=== PATIENT | male | born 1975 | race Hispanic/Latino ===

== ENCOUNTER → 2024-11-06 | Outpatient (CLI) | payer OTHER ==
[~2024-11-06] MED LIST: IOHEXOL 350 MG/ML 100ML INFUS..BTL IV ONE; metoPROLOL tartRATE 1 MG/ML 5ML VIAL IV ONE
--- NOTE | 2024-11-06 12:25 | HMCIMG ---
CT CARDIAC ANGIO W/CONT. CCTA HISTORY: Chest pain COMPARISON: None TECHNIQUE: Multiple sequential axial images of the chest were obtained along with the CT angiogram of the chest study. Patient was given 100 cc of Omnipaque through intravenous route. FINDINGS: There is no evidence of pulmonary nodule or parenchymal disease. No pleural effusion or pericardial effusion is seen. There is no evidence of pneumothorax. There are normal size mediastinal and hilar lymph nodes. The heart is not enlarged. Degenerative changes of the thoracolumbar spine are present. IMPRESSION: 1. No evidence of pulmonary nodule or effusion is seen. Please see CT angiogram report of coronary arteries.
== END | disposition home or self-care (01) ==
LOC: EEVIPCON 10:39 → RAH 10:39
PROVIDERS: ATTEND Student in an Organized Health Care Education/Training Program
DX: R07.9 Chest pain, unspecified (principal); R94.31 Abnormal electrocardiogram [ECG] [EKG]; M47.815 Spondylosis without myelopathy or radiculopathy, thoracolumbar region
CPT/HCPCS: 75574; J3490 ×2; Q9967

== ENCOUNTER → 2024-11-27 | Outpatient (CLI) | payer OTHER ==
--- NOTE | 2024-11-28 14:21 | HMCSR ---
APPROVED REPORT EXAM: Two-dimensional and M-mode echocardiogram with Doppler and color Doppler. INDICATION ICD: R07.9 Chest pain Abnormal ECG 2D Dimensions RVDd4.0 cmLVEF(%)60.8 (>50%)LVED Vol(simp.)120.0 mL IVSd0.8 (0.7-1.1cm)FS(%)33 %LVES Vol(simp.)59.0 mL LVDd5.3 (3.8-5.6cm)Ao Root(2D)3.2 (2.0-3.7cm)LVEF(%, simp.)51 % PWd1.0 (0.7-1.1cm)LVOT diam2.1 (1.8-2.4cm)LA ESV INDEX (BP)23.31 mL/m2 LVDs3.5 (2.5-4.0cm)IVC diam1.4 cm Aortic Valve AoV Vmax1.6 m/Momo Peak GR10.7 mmHgLVOT Vmax1.0 m/s AoV VTI0.3 mAo Mean GR5.5 mmHgLVOT VTI0.21 m ANKUR (VMAX)2.2 cm2AVA (VTI) 2.2 cm2 Mitral Valve MV E Vmax78.1 cm/sDECEL [id number] ms MV A Vmax63.7 cm/sP 1/2 T57 ms E/A ratio1.2MVA (PHT)3.9 cm2 TDI E/E' Twdudy63.7E/E' Lateral8.2 Pulmonary Valve PV Vmax1.0 m/sPV VTI0.24 mPV Mean GR2 mmHg PV Peak GR4.0 mmHg Left Ventricle Left ventricular cavity size is normal. There is normal LV segmental wall motion. There is normal lef t ventricular wall thickness. LVEF is 50-55%. Left ventricular filling pattern is normal for age. Right Ventricle The right ventricle is normal size. The right ventricular systolic function is normal. Atria The left atrium size is normal. Small PFO is noted. The right atrium size is normal. Aortic Valve Aortic valve is trileaflet. Aortic valve leaflets are sclerotic but open well. Trace aortic regurgita tion. There is no aortic valvular stenosis. Mitral Valve Mitral valve leaflets are mildly sclerotic but open well. Mitral regurgitation is trace. There is no mitral valve stenosis. Tricuspid Valve The tricuspid valve leaflets appear normal. There is trace tricuspid regurgitation. Pulmonic Valve Pulmonic valve is not well visualized. There is trace pulmonic valvular regurgitation. Great Vessels The aortic root is normal in size. The IVC is normal in size and collapses >50% with inspiration. Pericardium No pericardial effusion. Other Information Quality : Average Conclusion Left ventricular cavity size is normal. LVEF is 50-55%. There is normal LV segmental wall motion. Left ventricular filling pattern is normal for age. The right ventricular systolic function is normal. Both atria are normal in size. No hemodynamically significant valvular abnormalities. No pericardial effusion.
== END | disposition home or self-care (01) ==
LOC: SHCH 13:21 → EDUNIT# 13:30
PROVIDERS: ATTEND Student in an Organized Health Care Education/Training Program
DX: I08.0 Rheumatic disorders of both mitral and aortic valves (principal); R07.9 Chest pain, unspecified; R94.31 Abnormal electrocardiogram [ECG] [EKG]
CPT/HCPCS: 93306